=== PATIENT | male | born 1990 | race Caucasian/White ===

== ENCOUNTER 2025-06-03 23:54 | Emergency (ER) | payer SELFPAY ==
[2025-06-03 23:58] VITALS: BP 129/76; PULSE 121; RESP 16; TEMP 36.7; O2SAT 98; BMI 27.1
--- NOTE | 2025-06-04 00:07 | XRR_ITS ---
PROCEDURE INFORMATION: Exam: XR Right Ankle Exam date and time: 06/04/2025 12:45 AM Age: 34 years old Clinical indication: Injury or trauma; Blunt trauma; Lower leg and ankle; Right; Injury details: 12 foot fall; Additional info: Fall with ankle pain TECHNIQUE: Imaging protocol: Radiologic exam of the right ankle. Views: 3 or more views. COMPARISON: No relevant prior studies available. FINDINGS: Bones/joints: Comminuted distal fibular diaphysis fracture with a 4.4 cm fracture fragment displaced posteromedially 10 mm. There is also a displaced medial malleolar fracture. Mild midfoot arthrosis. Soft tissues: Normal. XR/XR ankle RT min 3V* [id number] IMPRESSION: As above.
[2025-06-04] MEDS: ondansetron 2 mg/ML SDV 2 mL 4 MG IVP (00:25)
[2025-06-04] MEDS: morphine 4 mg/mL SDV 1 mL IVP ×2 (00:25→00:54)
[2025-06-04 00:37] LABS: Hematocrit 42.8 % (37-53); Hemoglobin 14.90 g/dL (11.27-16.99); Mean Corpuscular HGB Conc 34.8 g/dL (30-55); Mean Corpuscular Hemoglobin 31.0 pg (27-33); Mean Corpuscular Volume 89.0 fl (82-101); Nucleated Red Blood Cells % 0 %; Platelet Count 241 10^3/cmm (157-399); Red Blood Count 4.81 10^6/uL (3.85-5.65); White Blood Count 11.76 10^3/uL (3.29-11.43)
[2025-06-04 00:52] LABS: Alanine Aminotransferase 30 U/L (0-41); Albumin Level 4.1 g/dL (3.5-5.2); Alkaline Phosphatase 85 U/L (40-130); Anion Gap 18.7 (5-19); Aspartate Amino Transferase 29 U/L (0-40); Blood Urea Nitrogen 15 mg/dL (6-20); Calcium 9.0 mg/dL (8.5-10.5); Carbon Dioxide 23 mmol/L (22-29); Chloride 100 mmol/L (98-107); Creatinine Clr Calc Pharmacy 116.3650; Globulin 3.2 g/dL (1.3-4.6); Glucose 95 mg/dL (65-115); Osmolality Calculated 287 mOsm/kg (285-295); Potassium 3.7 mmol/L (3.5-5.1); Sodium 138 mmol/L (136-145); Total Protein 7.3 g/dL (6.6-8.7)
[2025-06-04 00:54] VITALS: RESP 17; O2SAT 97
[2025-06-04 00:56] VITALS: BP 108/61; PULSE 97; RESP 17; O2SAT 95
[2025-06-04 03:08] VITALS: RESP 17; O2SAT 98
[2025-06-04] MEDS: oxyCODONE-APAP 10-325 mg Tablet 1 TAB PO (03:08)
[2025-06-04 03:21] VITALS: BP 110/61; PULSE 91; RESP 17; O2SAT 99
--- NOTE | 2025-06-04 04:09 | ED_ITS ---
HPI - Extremity Problem 2 General: Chief complaint: Extremity Injury, Lower Stated complaint: Possible Broken Ankle Time Seen by Provider: 06/04/25 00:07 History of Present Illness: 34-yo male fell ?10 ft while installing a rope swing for his son earlier today. Phillips/felt a ?crushing can? noise on landing. Reports immediate swelling and 8/10 pain in the right ankle, markedly worsened by any motion and relieved by keeping the foot still. Unable to bear weight; describes a sense that ?nothing is holding it there.? Denies visible bone protrusion, open wound, head injury, loss of consciousness, or other trauma. No prior fractures. Has not taken oral analgesics; was given IV morphine on arrival, causing facial flushing but partial relief pending. No associated numbness or tingling elsewhere. Review of systems otherwise negative. Related Data Previous Rx's ?Medication ?Instructions ?Recorded diphenhydramine 25 2 tab PO .BEDTIME PRN pain 3 0 days 02/25/21 mg-acetaminophen 500 mg tablet #60 tabs (Tylenol PM Extra Strength) cephalexin 500 mg capsule 500 mg PO TID 10 days #30 ca ps 01/14/22 methylprednisolone 4 mg tablets in See Rx Instructions PO PER PKG DIR 01/14/22 a dose pack (Medrol (Ihsan)) #21 ea oxycodone-acetaminophen 5 mg-325 1 tab PO TID PRN pain #20 tabs 06/04/25 mg tablet (Percocet) Allergies Allergy/AdvReac Type Severity Reaction Status Date / Time No Known Allergies Allergy Verified 01/14/22 10:45 [facility] ED 2 [facility]: Medical History (Updated 06/04/25 @ 02:53 by Brad Verde MD) No significant medical problems Surgical History No significant past surgical history Social History Smoking and tobacco/nicotine status: current every day tobacco/nicotine user cigarettes Packs smoked per day: 0.5 Second hand smoke exposure: Yes Alcohol intake: never Substance/Drug Use: former Caregiver/support person: No Lives independently: Yes Physical Exam 2 Const: COMMON NORMALS: no acute distress, patient oriented x3 and alert HENMT: COMMON NORMALS: normocephalic and atraumatic HEAD & SCALP: n ormocephalic and atraumatic Eye: COMMON NORMALS: Equal, round and reactive pupils present, EOMs intact bilaterally and no scleral icterus PUPIL: Yes Equal, round and reactive pupils present Resp: COMMON NORMALS: normal respiratory effort and No retractions Cardio: COMMON NORMALS: regular rate, regular rhythm and No murmurs present (Cardio) RATE: regular rate RHYTHM: regular rhythm GI: COMMON NORMALS: Normal to inspection, nondistended, normoactive bowel sounds present, Soft to palpation and non-tender PALPATION: Yes Soft to palpation Extremity: NARRATIVE EXTREMITY EXAM: Marked swelling and diffuse tenderness of right ankle; severe pain with any attempted range of motion; patient rests in ~10? plantar flexion for comfort; no gross deformity or open wound visualized. Neuro: COMMON NORMALS: patient oriented x3 SENSORIUM/ORIENTATION: Yes alert Skin: COMMON NORMALS: no rashes or lesions noted GENERAL SKIN EXAM: no rashes or lesions noted Course 2 Vital Signs: Vital signs: Vital Signs Temperature 98.0 F 06/03/25 23:58 Pulse Rate 91 06/04/25 03:21 Respiratory Rate 17 06/04/25 03:21 Blood Pressure 110/61 06/04/25 03:21 Pulse Oximetry 99 06/04/25 03:21 Oxygen Delivery Me thod Room Air 06/04/25 00:56 MDM - Extremity (Nontraumatic) Medical Decision Making CT confirms right medial malleolus fracture and distal right fibula shaft fracture, both comminuted and displaced. Ankle is almost anatomically aligned. Patient was placed in a splint and given crutches and a course of pain medication and feels much better. He will be discharged in stable condition with close follow-up to podiatry. I spoke with Dr. Strange who plans to see the patient later today in clinic to plan surgery. Patient is agreeable to the plan. Lab Data 06/03/25 23:56 06/03/25 23:56 Radiology Impressions Ankle X-Ray 06/04/25 00:07 IMPRESSION: As above. Laboratory Results WBC 11.76 10^3/uL (3.29-11.43) H 06/03/25 23:56 RBC 4.81 10^6/uL (3.85-5.65) 06/03/25 23:56 Hgb 14.90 g/dL (11.27-16.99) 06/03/25 23:56 Hct 42.8 % (37-53) 06/03/25 23:56 MCV 89.0 fl (82-101) 06/03/25 23:56 MCH 31.0 pg (27-33) 06/03/25 23:56 MCHC 34.8 g/dL (30-55) 06/03/25 23:56 RDW 12.3 % (12.1-15.1) 06/03/25 23:56 Plt Count 241 10^3/cmm (157-399) 06/03/25 23:56 MPV 11.2 fL (7.4-10.4) H 06/03/25 23:56 Neut % (Auto) 60.2 % 06/03/25 23:56 Lymph % (Auto) 28.7 % 06/03/25 23:56 Wilson % (Auto) 8.2 % 06/03/25 23:56 Eos % (Auto) 2.1 % 06/03/25 23:56 Baso % (Auto) 0.5 % 06/03/25 23:56 Neut # (Auto) 7.09 10^3/uL (1.8-7.7) 06/03/25 23:56 Lymph # (Auto) 3.4 10^3/uL (0.8-4.8) 06/03/25 23:56 Wilson # (Auto) 1.0 10^3/uL (0.2-0.9) H 06/03/25 23:56 Eos # (Auto) 0.3 10^3/uL (0.0-0.8) 06/03/25 23:56 Baso # (Auto) 0.1 10^3/uL (0.0-0.1) 06/03/25 23:56 Nucleated RBC % (auto) 0 % 06/03/25 23:56 Nucleated RBCs # 0.0 /100WBC 06/03/25 23:56 Sodium 138 mmol/L (136-145) 06/03/25 23:56 Potassium 3.7 mmol/L (3.5-5.1) 06/03/25 23:56 Chloride 100 mmol/L (98-107) 06/03/25 23:56 Carbon Dioxide 23 mmol/L (22-29) 06/03/25 23:56 Anion Gap 18.7 (5-19) 06/03/25 23:56 BUN 15 mg/dL (6-20) 06/03/25 23:56 Creatinine 1.0 mg/dL (0.7-1.2) 06/03/25 23:56 GFR Calculation 84.5 mL/min (90-130) L 06/03/25 23:56 Glucose 95 mg/dL (65-115) 06/03/25 23:56 Calculated Osmolality 287 mOsm/kg (285-295) 06/03/25 23:56 Calcium 9.0 mg/dL (8.5-10.5) 06/03/25 23:56 Total Bilirubin 0.6 mg/dL (0.15-1.2) 06/03/25 23:56 AST 29 U/L (0-40) 06/03/25 23:56 ALT 30 U/L (0-41) 06/03/25 23:56 Alkaline Phosphatase 85 U/L (40-130) 06/03/25 23:56 Total Protein 7.3 g/dL (6.6-8.7) 06/03/25 23:56 Albumin 4.1 g/dL (3.5-5.2) 06/03/25 23:56 Globulin 3.2 g/dL (1.3-4.6) 06/03/25 23:56 All radiology interpretation(s) finalized by discharge Discharge Plan Discharge Patient Disposition: Home Clinical Impression: Closed fracture of right distal fibula, Closed fracture of medial malleolus of right ankle, Fall from tree Condition: Stable Prescriptions: New oxycodone-acetaminophen [Percocet] 5-325 mg tablet 1 tab PO TID PRN (Reason: pain) Qty: 20 0RF No Action diphenhydramine-acetaminophen [Tylenol PM Extra Strength] 25-500 mg tablet 2 tab PO .BEDTIME PRN (Reason: pain) 30 Days Qty: 60 2RF methylprednisolone [Medrol (Ihsan)] 4 mg tablets,dose pack See Rx Instructions PO PER PKG DIR Qty: 21 0RF Rx Instructions: PO PER PKG DIR cephalexin 500 mg capsule 500 mg PO TID 10 Days Qty: 30 0RF Discharge Orders: Discharge ED (Routine); Ordered 06/04/25 Ordered By: Brad Verde Referrals: Alistair Strange DPM [Physician, Podiatry] - 1-3 days Referral Note: right ankle fracture Domenica Ball FNP [Primary Care Provider, Nurse Practitioner] Discharge Diet: Usual diet Discharge Activity: Increase activity as tolerated Patient Instructions: Ankle Fracture (ED), Opioid Safety, Pain Management, Patient Portal & Ale Instructions Activity Restrictions/Additional Instructions: Please call Dr. Strange's office first thing in the morning to be seen to plan surgery Print Language: Solomon Islander Coding Level of Care Code ED Oncology Consultant for Cheikh Huizar
== END 2025-06-04 03:22 | disposition home or self-care (01) ==
PROVIDERS: Emergency Provider Student in an Organized Health Care Education/Training Program; Family Provider Nurse Practitioner Family; PCP Nurse Practitioner Family
DX: S82.401A Unspecified fracture of shaft of right fibula, initial encounter for closed fracture (principal); S82.51XA Displaced fracture of medial malleolus of right tibia, initial encounter for closed fracture; F17.210 Nicotine dependence, cigarettes, uncomplicated; W14.XXXA Fall from tree, initial encounter
CPT/HCPCS: 29505; 36415; 73610; 80053; 85025; 96374; 96375; 96376; 99284; J2270; J2405; J9999

== ENCOUNTER → 2025-06-05 14:58 | Outpatient (BNVA) | payer MEDICAID, SELFPAY | PROVIDERS: Family Provider Nurse Practitioner Family; PCP Nurse Practitioner Family; Visit Provider Podiatrist Foot & Ankle Surgery | DX: S82.51XA Displaced fracture of medial malleolus of right tibia, initial encounter for closed fracture (principal); S82.831A Other fracture of upper and lower end of right fibula, initial encounter for closed fracture; S93.431A Sprain of tibiofibular ligament of right ankle, initial encounter; S82.851A Displaced trimalleolar fracture of right lower leg, initial encounter for closed fracture; W14.XXXA Fall from tree, initial encounter | CPT/HCPCS: 99204 ==

== ENCOUNTER 2025-06-06 12:25 | Day surgery (SDC) | payer MEDICAID, SELFPAY ==
[2025-06-06] VITALS (13 sets, daily range): BP systolic 93–128; BP diastolic 46–84; PULSE 75–109; RESP 12–22; TEMP 36.1–36.6; O2SAT 94–100
--- NOTE | 2025-06-06 12:34 | W.PM.OPSUD ---
Surgery/Procedure H&P Update DATE OF PROCEDURE: June 06, 2025 DATE H&P PERFORMED: 06/05/25 H&P UPDATE INFORMATION: I have reviewed H&P completed within last 30 days, I have examined patient prior to procedure, No changes to prior documentation and Risks and benefits of the procedure reviewed PREOP DIAGNOSIS: Right trimalleolar fracture PLANNED PROCEDURE: Operation Date: 06/06/25 13:30 Proposed Procedures p ORIF Trimalleolar Fracture(Right) - Alistair Strange DPM s Syndesmotic Repair RIGHT Ankle(Right) - Alistair Strange DPM
--- NOTE | 2025-06-06 13:10 | P.ANESASSM_ITS ---
Pre-Anesthetic Assessment Height/Weight: Height 1.8 m Preop Diagnosis: Right trimalleolar fracture Operation Date: 06/06/25 13:30 Proposed Procedures p ORIF Trimalleolar Fracture(Right) - Alistair Strange DPM s Syndesmotic Repair RIGHT Ankle(Right) - Alistair Strange DPM Familial anesthetic complications: None Was Beta Rafita taken within 24 hours: N/A Was Clonidine taken within 24 hours: N/A Last intake: > 8hrs Social Tobacco and No alcohol Exam alert, oriented x 3, clear to auscultation bilaterally and regular rate & rhythm Airway Mallampati: Class II Dentition: full Anesthetic Plan ASA status: 1 Anesthesia: General and Regional (specify below) Risk of > 500 ml blood loss (7ml/kg in children): No Medications/Allergies Home Medications ?Medication ?Instructions ?Recorded ?Confirmed ?Last Taken ?Type oxycodone-acetaminophen 10 mg-325 1 tab PO Q6H PRN clement n 7 days #28 06/06/25 Unknown Rx mg tablet (Percocet) tabs Allergies Allergy/AdvReac Type Severity Reaction Status Date / Time No Known Allergies Allergy Verified 06/05/25 16:27 Current Medications Generic Name Dose Route Start Last Admin Trade Name Freq PRN Reason Stop Dose Admin Sodium Chloride 1,000 mls @ 30 mls/hr 06/06/25 12:30 06/06/25 12:52 Sodium Chloride 0.9% IV 06/07/25 12:29 30 mls/hr .Q24H LUIS ALFREDO Administration PFSH Anesthesia Medical History (Updated 06/05/25 @ 15:36 by Alistair Strange DPM) No significant medical problems Surgical History No significant past surgical history Social History Smoking and tobacco/nicotine status: current every day tobacco/nicotine user cigarettes Packs smoked per day: 0.5 Second hand smoke exposure: Yes Alcohol intake: never Substance/Drug Use: former Caregiver/support person: No Lives independently: Yes Anesthesia Procedures Nerve Block Nerve Block 1: Main Anesthesia: general anesthesia Time Out Performed: Yes Consent: requested by attending/covering physician, from patient, from other, risks and benefits reviewed and patient agrees to proceed Nerve block location: popliteal (R) Anesthesia monitors applied: pulse oximetry, EKG, BP cuff and oxygen Nerve block position: supine Anesthetic Used: ropivicaine 0.5% (30 ml) and with decadron (4 mg) Ultrasound used to: recognize landmarks Interscalene/Femoral BLK: 4 stimuplex 21 g needle used for position and inplane approach, visualize local anesthetic spread and no vascular puncture identified Injection: neg aspiration of heme Patient Tolerated Procedure: well Complications: none
[2025-06-06] MEDS: ceFAZolin 2,000 mg SDV 2000 MG IVP (13:16)
[2025-06-06] MEDS: tranexamic acid 1,000 MG/100 ML PREMIX 600 MG IV (13:22)
--- NOTE | 2025-06-06 14:41 | P.BOP_ITS ---
Date of Procedure: 01/28/24 Surgeon: Alistair Strange DPM It Application Development Manager(s): Rasheeda Procedure(s) performed: Open reduction internal fixation right trimalleolar fracture with syndesmotic repair. Findings of the procedure(s): Syndesmotic disruption and trimalleolar fracture Estimated blood loss: 10 mL Specimen(s) removed: No specimens Post-operative diagnosis: Right trimalleolar fracture with syndesmotic disruption
--- NOTE | 2025-06-06 14:42 | PM.OP ---
Operative Report Date of procedure: June 06, 2025 Pre-op diagnosis: Fracture dislocation of joint T14.8XXA Fall from tree, initial encounter W14.XXXA Closed displaced fracture of medial malleolus of right tibia, initial encounter S82.51XA Other closed fracture of distal end of right fibula, initial encounter S82.831A Syndesmotic disruption of right ankle, initial encounter S93.431A Closed trimalleolar fracture of right ankle, initial encounter S82.851A Post-op diagnosis: Fracture dislocation of joint T14.8XXA Fall from tree, initial encounter W14.XXXA Closed displaced fracture of medial malleolus of right tibia, initial encounter S82.51XA Other closed fracture of distal end of right fibula, initial encounter S82.831A Syndesmotic disruption of right ankle, initial encounter S93.431A Closed trimalleolar fracture of right ankle, initial encounter S82.851A Procedure done: 1) open reduction internal fixation right trimalleolar fracture. CPT [id number] 2) syndesmotic repair right ankle. CPT code 39423 Implants: [place]wood one third tubular plate and 3.5 mm locking screws at distal fibula [place] 4.0 mm headed partially-threaded cannulated screw x 2 at medial malleolus Syndesmotic repair with paragon Reflex tricortical dynamic syndesmotic repair 2-0 Vicryl, 3-0 Vicryl, skin azul Specimens removed/disposition: No specimens removed Pathology: No pathology specimens Surgeon: Alistair Strange DPM Cable Weaver: Rasheeda Estimated blood loss: 10 59 IV fluids: See intraoperative documentation Urine output: No urine output Complications: no complications Findings: Trimalleolar fracture with syndesmotic disruption right lower extremity Brief History: 34 year old male patient who presents to the clinic for evaluation of his right distal fibula fracture DOI: 06/03/25. Was on a current river float trip and was hanging a rope for a rope swing fell injuring his right ankle, still had several hours left on the float. Presents as a follow-up from emergency department after having been splinted and given crutches has been compliant with nonweightbearing status and compliant with pain medication prescription. Denies loss of consciousness or hitting his head denies any concomitant injuries. X-ray right ankle 3 views taken 06/04/2025 shows trimalleolar fracture with Luis Templeton B fracture with comminution of the distal fibula, medial malleolus at the level of the ankle mortise with comminution is fractured, small avulsion fracture of the posterior malleolus, lateral talar shift approximately 2 mm and increased tib-fib clear space. Explained x-ray and clinical findings with patient consistent with unstable trimalleolar fracture with syndesmotic disruption to the right ankle necessitating open reduction internal fixation. I reviewed at length with the patient, the risks, potential complications, benefits, alternatives, expectations, and typical outcomes associated with the surgery. The risks and potential complications were explained in detail, including but not limited to infection, wound dehiscence or soft tissue complications, bleeding and hematoma, chronic edema, neuritis or nerve damage producing numbness or chronic pain, CRPS, failure to relieve pain or worsening pain, thick / painful / unsightly scar, limited motion / stiffness, malposition, delayed union, malunion, or nonunion, fracture, reaction to implants, anesthetic complications, venous thromboembolism, and deformity recurrence. I discussed the notion of no regrets with the patient as it pertains to complications and outcomes. The patient seemed to understand the nature of the proposed care and required convalescence. They asked appropriate questions, answered to their satisfaction. They are aware no guarantees can be made as to a satisfactory outcome and they understand there may be other possible unforeseen complications or outcomes not listed here that will be treated accordingly if they arise. There were no written or implied guarantees given to the patient. They gave informed consent to proceed. Planning on outpatient surgery with popliteal block to the right lower extremity consisting of ORIF of right trimalleolar fracture and syndesmotic repair. Procedure: Under mild sedation the patient was brought to the operating room and remained on the gurney in supine position. A timeout was performed. Anesthesia was then administered by the anesthesia service. Of note right popliteal block was performed preoperatively per anesthesia. Well-padded pneumatic tourniquet applied to the right high calf. Right lower extremity was scrubbed, prepped and draped utilizing normal aseptic technique.Right foot and ankle were exanguinated with an Esmarch bandage and tourniquet inflated to 250 mmHg. Attention was directed to the lateral aspect of the right ankle where lateral malleolus and medial malleolus were palpated directly over the distal fibula a linear longitudinal incision was made through skin with dissection carried down through subcutaneous tissue to the layer periosteum utilizing a combination of sharp and blunt technique. Periosteal incision was made in the lateral malleolus and care was taken to retract preserve neurovascular and tendinous structures. All bleeders were ligated and cauterized as necessary. Medial malleolus fractures were identified, curettaged of hematoma, flushed with saline solution and reduced with [id number] fracture self-retaining clamp, medial malleolus was fixated with 2 parallel screws utilizing standard AO technique with excellent bony apposition and compression noted and the distal fibula was fixated utilizing a one third tubular plate with 3.5 mm locking screws with excellent bony apposition and compression noted. Fibula was pulled out the length and the rotated and held in anatomic position in all 3 planes confirmed with intraoperative C arm. Intraoperative C arm on the AP, oblique and lateral views confirm no hardware violating the ankle mortise. Cotton hook test intraoperatively demonstrated syndesmotic disruption with diastases at the tib-fib clear space necessitating syndesmotic repair which was achieved with paragon Reflex with excellent reduction and range of motion of the ankle joint and reduction of the syndesmosis post fixation. Syndesmotic repair was performed proximal and parallel to the tibial plafond. Final x-ray AP oblique lateral view confirmed excellent anatomic alignment and fixation of fractures and syndesmosis. The incisions were irrigated with saline solution and closed in a layered fashion. Periosteum reapproximated with 2-0 Vicryl, subcutaneous tissue reapproximated with 3-0 Vicryl and skin with azul. Incisions were then dressed with Xeroform, sterile 4 x 4 gauze, Kerlix followed by application of a well-padded short leg cast with ankle joint in neutral position. Tourniquet was deflated and a prompt hyperemic response is noted to the distal digits of the right foot. Patient tolerated the procedure and anesthesia well and was transferred to the PACU with vital signs stable and vascular status intact. Following a period of postoperative monitoring we discharged home without home care instructions and scheduled follow-up.
--- NOTE | 2025-06-06 14:44 | XR_ITS ---
WS: [id number] Right ankle, 3 views, 06/06/2025 Clinical Data: post op Comparison: Right ankle, 06/04/2025 Findings: There is a lateral plate on the distal right fibula fixed with multiple screws reducing the distal fibular fracture. There are oblique screws in the medial malleolus reducing the fracture. There are surgical azul at the operative sites. A fiberglass cast also reduces the fractures. XR/XR ankle RT min 3V* [id number] Impression: Internal fixation of bimalleolar fracture of the right ankle.
[2025-06-06] MEDS: fentaNYL 50 mcg/mL INJ 2mL IVP (15:09)
--- NOTE | 2025-06-06 16:15 | ANE.PACU2 ---
Inpatient post-anesthesia follow up: Airway intact: Yes Vital signs: Temperature 98 F Pulse Rate 88 Respiratory Rate 17 Blood Pressure 115/76 Pulse Oximetry 95 Oxygen Delivery Me thod Room Air Oxygen Flow Rate 8 Fraction of Inspir ed Oxygen Hydration adequate: Yes Nausea and vomiting: No Pain level: 1 Mental status: Baseline
== END 2025-06-06 16:15 | disposition home or self-care (01) ==
PROVIDERS: PCP Nurse Practitioner Family; Visit Provider Podiatrist Foot & Ankle Surgery
PROC: (CPT 27822; principal; 2025-06-06 13:20)
PROC: (CPT 27822; 2025-06-06 13:20)
DX: T14.8XXA Other injury of unspecified body region, initial encounter (principal); S82.51XA Displaced fracture of medial malleolus of right tibia, initial encounter for closed fracture; S82.831A Other fracture of upper and lower end of right fibula, initial encounter for closed fracture; S93.431A Sprain of tibiofibular ligament of right ankle, initial encounter; S82.851A Displaced trimalleolar fracture of right lower leg, initial encounter for closed fracture; W14.XXXA Fall from tree, initial encounter; F17.210 Nicotine dependence, cigarettes, uncomplicated
CPT/HCPCS: 27822; 27829; 73610; 76000; C1713; J0690; J1100; J1885; J2250; J2405; J2704; J2795; J3010; J3490; J7030; J9999

== ENCOUNTER → 2025-06-14 11:10 | Outpatient (BNVA) | payer MEDICAID, SELFPAY | PROVIDERS: PCP Nurse Practitioner Family; Visit Provider Podiatrist Foot & Ankle Surgery | DX: Z98.890 Other specified postprocedural states (principal); Z87.81 Personal history of (healed) traumatic fracture | CPT/HCPCS: 99024 ==